=== PATIENT | female | born 1955 | race Caucasian/White ===

== ENCOUNTER → 2023-06-22 10:44 | Outpatient (REF) | payer MEDICARE, OTHER, SELFPAY | LOC: HWRAD 10:44 | PROVIDERS: ATTENDING PHYSICIAN Family Medicine | DX: Z87.891 Personal history of nicotine dependence (principal) | CPT/HCPCS: 71271 ==

== ENCOUNTER → 2023-07-12 14:05 | Outpatient (REF) | payer MEDICARE, OTHER, SELFPAY | LOC: HWWDC 14:05 | PROVIDERS: ATTENDING PHYSICIAN Family Medicine | DX: Z12.31 Encounter for screening mammogram for malignant neoplasm of breast (principal) | CPT/HCPCS: 77063; 77067 ==

== ENCOUNTER → 2023-12-15 11:18 | Outpatient (REF) | payer MEDICARE, OTHER, SELFPAY | LOC: HWRCS 11:18 | PROVIDERS: ATTENDING PHYSICIAN Internal Medicine Cardiovascular Disease; FAMILY PHYSICIAN Family Medicine | DX: R06.02 Shortness of breath (principal) | CPT/HCPCS: 93306 ==

== ENCOUNTER 2023-12-20 11:52 | Inpatient (IN) | payer MEDICARE, OTHER, SELFPAY ==
[2023-12-20] VITALS (7 sets, daily range): BP systolic 123–151; BP diastolic 71–89; PULSE 75; BMI 43.4
--- NOTE | 2023-12-20 08:12 | ED.GENMED ---
History of Present Illness
General
Chief Complaint: Breathing Problem
Source: patient and spouse
Exam Limitations: none
Time Seen by Provider: 12/20/23 07:48
Nursing documentation reviewed up to this point in time: agreed with
History of Present Illness
History of Present Illness:
68-year-old female with past medical history of COPD hypertension presenting to the emergency department today with concerns of shortness of breath made worse when laying down and trying to sleep also made worse with exertion. Has had some mild
upper respiratory symptoms over the past week but noticed worsening respiratory issues over the past 24 hours. She did take a COVID test last week started that was negative. Denies specific chest pain fevers.
Past History
Past History
ED Past Medical History: HTN and Other (GI bleed)
ED Past Surgical History: Orthopedic
Social History
Personal:
Living: with family
Review of Systems
Review of Systems
Allergies reviewed?: Yes
All Other Systems: ROS reviewed and negative except as documented in HPI and ROS
Phy Exam
Physical Exam
Physical Exam:
GENERAL: Alert , in no apparent distress
EYE: pupils equal and reactive
NECK: Supple, no significant adenopathy.
ENT: o/p clr, mmm.
CARDIAC: Regular rate and rhythm .
LUNGS: Clear breath sounds bilaterally, no acute respiratory distress, no wheezes/rales/rhonchi
ABDOMEN: Soft, without focal tenderness, no r/g, no cvat
NEUROLOGICAL: Alert and oriented, no focal neuro deficits
SKIN: Warm and dry, skin intact.
MUSCULOSKELETAL: No edema, well perfused.
PSYCH: Normal and appropriate interaction.
Scores
Heart Failure Risk
Heart Failure Risk Score: Not Applicable
Course
Orders/Labs/Results
Orders:
Orders
12/20/23 07:28
ECG [Electrocardiogram (*1)] Urgent
Reason for Study: Shortness of Breath
EKG- Treatment ONCE
12/20/23 07:58
Ipratropium/Albuterol Sulfate [Duoneb] 3 ml INH R NOW STA
12/20/23 07:59
CR Chest - 2 Views Urgent
Comment:
Reason For Exam: Patientsob
12/20/23 08:16
Basic Metabolic Panel Urgent
COVID-19 Antigen Urgent
Source: Nasal Swab
Complete Blood Count/With Diff Urgent
NT-proBNP Urgent
12/20/23 09:33
Potassium Urgent
12/20/23 09:45
Dexamethasone Sod Phosphate [Decadron] 10 mg IV NOW STA
12/20/23 10:06
Ipratropium/Albuterol Sulfate [Duoneb] 3 ml INH R NOW ONE
Abnormal Lab Results
12/20/23
08:16
RBC 4.19 L 10^6/uL
(4.20-5.40)
MCV 99.5 H fL
(81.0-99.0)
MCH 34.8 H pg
(27.0-31.0)
Absolute Monos (auto) 0.7 H 10^3/uL
(0.1-0.6)
Lymphocytes % 16.7 L %
(20.5-51.1)
Sodium 129 L mmol/L
(135-145)
Chloride 96 L mmol/L
(98-107)
Glucose 118 H mg/dl
(70-99)
12/20/23 08:16
12/20/23 09:33
Vital Signs
Initial and Last Documented VS:
Initial Vital Signs
Temp Pulse Resp BP Pulse Ox
98.4 F 73 18 151/89 96
12/20/23 07:25 12/20/23 07:25 12/20/23 07:25 12/20/23 07:25 12/20/23 07:25
Last Documented Vital Signs
Temp Pulse Resp BP Pulse Ox
98.4 F 64 11 123/72 89
12/20/23 07:25 12/20/23 10:45 12/20/23 10:45 12/20/23 10:00 12/20/23 10:58
MDM/Problems Addressed
MDM/Problems Addressed:
68-year-old female presenting to the emergency department today with concerns of worsening shortness of breath over the past day or so. Has had mild upper respiratory symptoms over the past week. Negative COVID test last week. Shortness of breath
worse when laying down and with exertion. On exam lung sounds are somewhat diminished but no obvious wheezing. Patient was given a nebulizer treatment vital signs here are normal. Patient BNP 30.7 no evidence of edema on chest x-ray but evidence
of COPD changes. After the initial DuoNeb patient with more noticeable wheezing when reassessing lungs. Symptoms most consistent with COPD at this point. Patient given dose of dexamethasone as well as second DuoNeb. Pulse ox fluctuating in the
high 80s at rest. With any exertion dropping lower. Plan to admit for further treatment and monitoring.
*Critical Care Note
Total Time (30-74mins, 75-104mins- exclusive of procedures): Not Applicable
ED Attending Note
-
Portions of this chart may have been created with voice recognition software.� Occasional wrong word or��sound alike� substitutions may have occurred due to the inherent limitations of voice recognition software.
Discharge Plan
Departure
Patient Disposition: Admit
Date of Disposition: 12/20/23
Time of Disposition: 11:17
Admit to: Telemetry
Admit to doctor: Alex
Presentation/result/management discussed w/ accepting MD/DO: Hospitalist
Patient with high blood pressure during this ER visit?: No
Condition: Good
Covid-19: Not Applicable
Discharge Problem:
COPD exacerbation
Prescriptions:
No Action
timolol maleate 1 DROP drops
1 drp BOTH EYES DAILY
L.acidoph, paracasei,B. lactis 1 EACH capsule
1 ea PO DAILY
pantoprazole 40 MG tablet,delayed release (DR/EC)
40 mg PO DAILY Qty: 30 0RF
losartan 25 MG tablet
12.5 mg PO DAILY Qty: 0 0RF
Rx Instructions:
Restart Once blood pressure is higher than 130 mm HG
Referrals:
Sonia Guzman MD [Family Provider] -
Interventions
Interventions:
*Risk Screen - Suicide Last Done: 12/20/23 07:25
*General Assessment Last Done: 12/20/23 07:25
*Neglect/Abuse Screening Last Done: 12/20/23 07:25
ED- Fall Risk Assessment Last Done: 12/20/23 08:27
ED- Cardiac Assessment Last Done: 12/20/23 08:27
ED- Pulmonary Assessment Last Done: 12/20/23 08:27
Discharge Date and Time
Print Language: YAKUT
[2023-12-20] MEDS: DUONEB 3 ML INH ×3 (08:21→21:20)
[2023-12-20 08:30] LABS: % Basophils 0.5 % (0-2); % Eosinophils 3.1 % (0-6); % Immature Granulocytes 0.2 % (0-0.5); % Lymphocytes 16.7 % (20.5-51.1); % Neutrophils 71.5 % (42.2-75.2); Absolute Eosinophils 0.3 10^3/uL (0-0.7); Absolute Lymphocytes 1.4 10^3/uL (1.2-3.4); Absolute Monocytes 0.7 10^3/uL (0.1-0.6); Hematocrit 41.7 % (37.0-47.0); Hemoglobin 14.6 g/dL (12.0-16.0); Mean Corpuscular Hgb 34.8 pg (27.0-31.0); Mean Corpuscular Volume 99.5 fL (81.0-99.0); Mean Platelet Volume 9.9 fL (7.4-10.4); Nucleated Red Blood Cells % 0 %; Platelet Count 162 10^3/uL (130-400); Red Blood Cell Count 4.19 10^6/uL (4.20-5.40); Red Cell Dist. Width 13.3 % (11.5-14.5); White Blood Cell Count 8.4 10^3/uL (4.8-10.8)
[2023-12-20 08:49] LABS: COVID-19 Antigen Negative (Negative)
[2023-12-20 08:52] LABS: Blood Urea Nitrogen 11 mg/dl (7-17); Glucose 118 mg/dl (70-99); Sodium 129 mmol/L (135-145); eGFR > 60.00
[2023-12-20 08:53] LABS: Carbon Dioxide 24 mmol/L (22-30); Chloride 96 mmol/L (98-107)
[2023-12-20 08:54] LABS: Calcium 9.4 mg/dl (8.4-10.2)
[2023-12-20 08:55] LABS: NT-proBNP 30.7 pg/ml
[2023-12-20 09:52] LABS: Potassium 4.5 mmol/L (3.5-5.1)
[2023-12-20] MEDS: DECADRON 10 MG IV (10:29)
--- NOTE | 2023-12-20 11:30 | HPS.HSE ---
Family Physician
-
Family Physician: Sonia Guzman
Chief Complaint
-
Shortness of breath, worse with exertion and lying flat, over 7 days
History of Present Illness
68-year-old female with COPD, hypertension, H/O GI bleed that presented to the emergency department today with complaints of shortness of breath. Her symptoms started roughly 7 days ago, began as mild upper respiratory symptoms which continued to
progress into respiratory distress over the last 24 hours. She states that her symptoms were worse when she was laying down trying to sleep, and also made worse with exertion. She took a COVID test near the beginning of her symptoms which she
states returned negative. She denies any chest pain or fevers, denies nausea/vomiting/diarrhea, denies urinary issues. Upon arrival to the ED she was hemodynamically stable, afebrile, on room air with SpO2 in the mid to high 80s. Labs showed
sodium 129 with chloride 96 but otherwise were unremarkable. COVID testing in the ED was negative. Chest x-ray showed mild hyperinflation related to COPD. She was given 10 mg IV dexamethasone and 1 dose of DuoNeb nebulizer while in the ED
Medical History
Past Medical History
Past Medical History: Reports COPD and HTN
Past Surgical History: Reports Orthopedic
Social History
Tobacco: Smoker
Alcohol: Occasional
Drug: None
Family History
Family History: Not pertinent
Allergies / Home Medications
Allergies reflects when Allergies were last updated in [employer].
Home Medications with original date entered in [employer]
Allergy/Medication List:
NKDA
Review of Systems
-
A 12 point ROS was completed and negative except as noted: Yes
Constitutional: Reports No Symptoms
Respiratory: Reports Trouble Breathing and Other (Wheeze(+))
Cardiac: Reports No Symptoms
Abdomen/GI: Reports No Symptoms
: Reports No Symptoms
Musculoskeletal: Reports No Symptoms
Skin: Reports No Symptoms
Neurological: Reports No Symptoms
Endocrine: Reports No Symptoms
Hematologic/Lymphatic: Reports No Symptoms
Physical Exam
Vital Signs
Vital Signs
Temp Pulse Resp BP Pulse Ox
98.4 F 64 11 123/72 89
12/20/23 07:25 12/20/23 10:45 12/20/23 10:45 12/20/23 10:00 12/20/23 10:58
Physical Exam
General: Comfortable and Conversant; No Respiratory Distress
HEENT: NormoCephalic, Anicteric, Moist mucous membranes and Atraumatic; No Thyromegaly or Nodules
Respiratory: Wheezes, Non Labored Respirations and Decreased Breath Sounds; No Rales, Rhonchi or Accessory Resp Muscle Use
Cardiac: S1/S2 and Regular Rhythm; No Murmur, Rub or Gallop
GI: Soft, Non Tender, Non Distended and Normal Bowel Sounds
Musculoskeletal: No Clubbing, No Cyanosis and No Edema
Skin: Warm and Dry; No Rash or Jaundice
Neuro: AO x 3, Nonfocal/grossly intact and Cranial Nerves Intact
Laboratory Results
-
12/20/23 08:16
12/20/23 09:33
Laboratory Results
Total Bilirubin Cancelled 12/20/23 08:16
AST Cancelled 12/20/23 08:16
ALT Cancelled 12/20/23 08:16
Alkaline Phosphatase Cancelled 12/20/23 08:16
Data Reviewed
-
Diagnostic Radiology: Report Reviewed by me
Lab Data: Labs Reviewed by me
Impression/Plan
-
#Acute hypoxemic and hypercapnic respiratory insufficiency
#COPD exacerbation -- Gold class A, Dx 1 month ago, no hospitalizations
-Was possibly triggered by viral infection 7 days ago, COVID testing negative
-Developed worsening respiratory status with exertional symptoms and symptoms while lying flat at night
-Chest x-ray showed signs of hyperaeration, no evidence of hypervolemia associated with heart failure
-Started on IV steroid and bronchodilator therapy in the ED with improvement in condition
-No complaints of worsening cough, mucus color changes, fevers or chills
-Was saturating 89% on room air in ED, adequate SpO2 on 2L now
Plan
-Continue with prednisone 40 mg daily
-Continue with DuoNebs scheduled every 6 hours
-Titrate supplemental oxygen for SpO2 goal 88 to 94%
-No indication for azithromycin as of now
-Consider LABA/ICS at discharge for maintenance therapy
#Hypertension
-No known hypertensive systemic disease
-Home regimen includes low-dose losartan 50 mg daily
-Blood pressure in the ED currently well-controlled
-Will continue to monitor
#H/O gastrointestinal bleed
-Unclear etiology of the bleed, Home regimen currently includes Protonix daily
-Will continue with oral PPI daily, no sign of bleeding at this time
#Chronic lower extremity edema
-Was prescribed Lasix 40 mg daily for lower extremity swelling
-No diagnosis of heart failure, no formal CVI diagnosis test
-Will monitor volume status while here and continue Lasix at current dosage
DVT prophylaxis: Lovenox
Diet: House
CODE STATUS: Full code
Disposition: Admit to med/surg
I will be admitting Marisol Astudillo to general medicine/surgery floor for treatment of COPD exacerbation. She is at high risk for ongoing morbidity and mortality due to worsening respiratory status with potential for acute respiratory failure and
. She will require treatment with standing dose bronchodilators and initiation of steroid regimen. I have spoken with the emergency department staff, and independently evaluated and interviewed the patient.
--- NOTE | 2023-12-20 17:51 | PTCARENOTE ---
Received pt form ED. AAOx3, VSS. Oriented to unit. [facility]. Denies any SOB or distress at this time. Plan of care is ongoing.
[2023-12-20] MEDS: TIMOPTIC 0.5% OPHTHALMIC SOLUTION 1 DROP BOTH EYES (19:53)
[2023-12-20] MEDS: MELATONIN 5 MG PO (21:53)
[2023-12-21] MEDS: DELTASONE 40 MG PO (07:37)
[2023-12-21] MEDS: VITAMIN B-12 1000 MCG PO (07:37)
[2023-12-21] MEDS: COZAAR 50 MG PO (07:38)
[2023-12-21] MEDS: TIMOPTIC 0.5% OPHTHALMIC SOLUTION 1 DROP BOTH EYES (07:38)
[2023-12-21] MEDS: VISBIOME 1 CAP PO (07:38)
[2023-12-21 07:48] VITALS: BP 130/75
[2023-12-21 09:32] LABS: % Basophils 0.2 % (0-2); % Eosinophils 0.2 % (0-6); % Immature Granulocytes 0.3 % (0-0.5); % Monocytes 4.4 % (1.7-9.3); % Neutrophils 85.9 % (42.2-75.2); Absolute Lymphocytes 1.1 10^3/uL (1.2-3.4); Absolute Monocytes 0.5 10^3/uL (0.1-0.6); Absolute Neutrophils 10.1 10^3/uL (1.4-6.5); Hematocrit 43.4 % (37.0-47.0); Hemoglobin 14.9 g/dL (12.0-16.0); Mean Corp Hgb Conc. 34.3 g/dL (33.0-37.0); Mean Corpuscular Hgb 35.1 pg (27.0-31.0); Mean Corpuscular Volume 102.4 fL (81.0-99.0); Mean Platelet Volume 9.8 fL (7.4-10.4); Nucleated Red Blood Cells % 0 %; Platelet Count 178 10^3/uL (130-400); Red Blood Cell Count 4.24 10^6/uL (4.20-5.40); Red Cell Dist. Width 13.6 % (11.5-14.5); White Blood Cell Count 11.8 10^3/uL (4.8-10.8)
--- NOTE | 2023-12-21 10:55 | W.PN.HOSP.TC ---
Addendum entered and electronically signed by Sai Johnson DO 12/21/23 18:02:
CDI clarification: Morbid obesity
-BMI 43, likely contributing to ROM/OHS for which he uses CPAP
-Do not suspect her BMI is related with COPD exacerbation
-Encourage weight loss
Original Note:
Today's Communication/Plan
-
Continue with oral prednisone and bronchodilators
Follow-up morning BMP, hold Lasix
Possible discharge later today
Assessment / Plan
Assessment / Plan
#Acute hypoxemic and hypercapnic respiratory insufficiency
#COPD exacerbation -- Gold class A, Dx 1 month ago, no hospitalizations
-Was possibly triggered by viral infection 7 days ago, COVID testing negative
-Developed worsening respiratory status with exertional symptoms and symptoms while lying flat at night
-Chest x-ray showed signs of hyperaeration, no evidence of hypervolemia associated with heart failure
-Started on IV steroid and bronchodilator therapy in the ED with improvement in condition
-No complaints of worsening cough, mucus color changes, fevers or chills
-Was saturating 89% on room air in ED, adequate SpO2 on 2L now
Plan
-Continue with prednisone 40 mg daily
-Continue with DuoNebs scheduled every 6 hours
-Titrate supplemental oxygen for SpO2 goal 88 to 94%
-No indication for azithromycin as of now
-Consider LABA/ICS at discharge for maintenance therapy
#Hypovolemic hyponatremia
-Was recently started on Lasix for leg swelling, recent illness as well
-Initial sodium was 129 in the ED, morning BMP now pending
-Lasix was held on admission, has been eating and drinking adequately
Plan
-Will follow-up morning BMP
-Continue to hold Lasix, likely will not need at DC
#Hypertension
-No known hypertensive systemic disease
-Home regimen includes low-dose losartan 50 mg daily
-Blood pressure in the ED currently well-controlled
-Will continue to monitor
#H/O gastrointestinal bleed
-Unclear etiology of the bleed, Home regimen currently includes Protonix daily
-Will continue with oral PPI daily, no sign of bleeding at this time
#Chronic lower extremity edema
-Was prescribed Lasix 40 mg daily for lower extremity swelling
-No diagnosis of heart failure, no formal CVI diagnosis test
-Lasix held, no signs of edema
#Morbid obesity -- BMI 43
#ROM/OHS
-Wears nightly CPAP
-Encouraged weight loss, diet and exercise as tolerated
DVT prophylaxis: Lovenox
Diet: House
CODE STATUS: Full code
Disposition: Admit to med/surg
Anticipated Discharge: Within 24 hours
Subjective/Interval History
-
Date of Service: December 21, 2023
Seen examined while sitting in the chair, wearing street clothes. Denies any acute complaints. States she feels very well and wants to leave the hospital.
Objective Data
-
Labs:
Laboratory Results
12/21/23 12/21/23
09:20 10:54
WBC 11.8 H
Hgb 14.9
Hct 43.4
Plt Count 178
Sodium Cancelled Pending
Potassium Cancelled Pending
Chloride Cancelled Pending
Carbon Dioxide Cancelled Pending
BUN Cancelled Pending
Creatinine Cancelled Pending
Glucose Cancelled Pending
Calcium Cancelled Pending
Vital Signs:
Vital Signs
Temp Pulse Resp BP Pulse Ox
97.9 F 68 18 130/75 95
12/21/23 07:48 12/21/23 07:48 12/21/23 07:48 12/21/23 07:48 12/21/23 07:48
I&O
12/20/23 12/21/23 12/22/23
06:59 06:59 06:59
Intake Total 720 / 720
Balance 720 / 720
Review of Systems
-
History Source: Patient
Constitutional: Reports No Symptoms
Respiratory: Reports No Symptoms
Cardiac: Reports No Symptoms
Abdomen/GI: Reports No Symptoms
Genitourinary: Reports No Symptoms
Musculoskeletal: Reports No Symptoms
Skin: Reports No Symptoms
Neuro: Reports No Symptoms
Endocrine: Reports No Symptoms
Hematologic / Lymphatic: Reports No Symptoms
Physical Exam
-
General: No Apparent Distress, Comfortable and Obese
HEENT: Normocephalic, Atraumatic and Moist Mucous Membranes
Respiratory: Clear to Auscultation and Non Labored Respirations; Negative Wheezes
Cardiac: Regular Rhythm and S1/S2; Negative Murmur, Rub, JVD or Gallop
GI: Soft, Nontender, Nondistended and Normal Bowel Sounds
Musculoskeletal: No Clubbing, No Cyanosis and No Edema
Neuro: AO x 3, Nonfocal/Grossly Intact and Central Nerve's Intact
[2023-12-21 11:52] LABS: Blood Urea Nitrogen 12 mg/dl (7-17); Calcium 9.7 mg/dl (8.4-10.2); Carbon Dioxide 29 mmol/L (22-30); Chloride 98 mmol/L (98-107); Estimated Creatinine Clearance 105 ml/min; Glucose 135 mg/dl (70-99); Potassium 4.8 mmol/L (3.5-5.1); Sodium 132 mmol/L (135-145); eGFR > 60.00
--- NOTE | 2023-12-21 14:17 | W.DCSUMMARY ---
Discharge Summary
Discharge Data
Date of Admission: 12/20/23
Date of Discharge: 12/21/23
-
Pending Results: No
Additional Pending Results:
Outpatient BMP in 5 days
Hospital Course
Presented to hospital with shortness of breath and wheezing, recently diagnosed COPD. First exacerbation of her COPD, was started on IV steroids and bronchodilators on admission. Transitioned her to oral steroids on day 2, continue with
bronchodilators. Very briefly required oxygen, was titrated up on day 1 and remained comfortable throughout the day to hospital stay. No evidence of infection.
Found to have hyponatremia in the context of Lasix use, likely reduced oral intake from preceding illness. Sodium was 120 on arrival, repeat 132 the next morning off of Lasix. Lasix was prescribed for lower extremity edema, presumed CVI. Advised
her to discontinue Lasix until she sees PCP or primary care doctor. Directed to call her PCP or weekend receptionist if she develops new leg edema or shortness of breath.
Discharged with prednisone 1 mg x 5 days, Incruse Ellipta. Encouraged to continue as needed DuoNebs 4 times daily.
Will need follow-up with PCP and pulmonology after discharge.
Discharge Plan
-
Patient Disposition: Home (Routine Discharge)
Discharge Diagnosis/Procedures: COPD exacerbation
Acute hypoxemic respiratory insufficiency
Hypovolemic hyponatremia
Condition: Fair
Diet: No restrictions
Activity: As tolerated
Driving Restrictions: As prior to admission
Blood Work: BMP in 5 days to recheck sodium level, send results to PCP
Specialty Instructions: Weigh Daily- Call MD for wt gain/loss 3 lbs overnight/5 lbs in 1 week
Referrals:
Chalino Ramon MD [Active] - (if need pulm referral)
Sonia Guzman MD [Family Provider] -
Additional Discharge Medication Instructions: Take prednisone 40 mg for 5 days after discharge
Start Incruse Ellipta once daily
Continue with DuoNebs every 6 hours as needed for shortness of breath or wheezing
Stop taking Lasix until you see your family doctor, call your family doctor or weekend receptionist if you develop swelling in legs or trouble breathing
Prescriptions:
New
losartan 50 mg Tablet
50 mg PO DAILY 30 Days Qty: 30 0RF
prednisone 20 mg Tablet
40 mg PO DAILY 5 Days Qty: 10 0RF
Incruse Ellipta 62.5 mcg/actuation blister with device
1 inh inhalation DAILY Qty: 30 0RF
Continued
timolol maleate 1 DROP drops
1 drp BOTH EYES BID
ipratropium-albuterol 0.5 mg-3 mg(2.5 mg base)/3 mL Solution For Nebulization
3 ml INHALATION R TIDPRN PRN (Reason: sob)
cyanocobalamin (vitamin B-12) 1,000 mcg Tablet
1,000 mcg PO DAILY
Pb8 Probiotic
1 cap PO DAILY
Held
furosemide [Lasix] 40 mg Tablet
40 mg PO DAILY
Hold Instructions: Resume on 01/21/24. Wait until you speak with your family doctor or weekend receptionist before resuming Lasix
Discharge Orders:
Discharge Patient (As Directed); Ordered 12/21/23
Ordered By: Sai Johnson
Discharge Date and Time
Print Language: KISWAHILI
[2023-12-21 14:31] VITALS: BP 134/71
--- NOTE | 2023-12-21 15:39 | PN.CDI ---
CDI
- -
CDI:
Physician Documentation Request
Admit Date: 12/20/23 11:52
Dear Doctor Alex,
Height: 5 ft 3 inches
Weight: 245
BMI: 43.4
RD notes 12/20 'Reason for RD visit: BMI 43.4 (obese)'
If possible, please provide an associated diagnosis related to the abnormal BMI, such as:
BMI > or = to 40
Overweight
Obesity:
Due to excess calories
Drug induced
Due to other cause
Severe or morbid obesity:
With alveolar hypoventilation (Obesity hypoventilation syndrome)
Without alveolar hypoventilation
- BMI is not significant
- Other
Use of terms such as suspected, likely, concern for, or probable (associated with a specific diagnosis that is being evaluated, monitored, or treated as if it exists) are acceptable and can be coded in the inpatient setting, when documented at the
time of discharge.
Thank you,
Maryuri Salgado RN, BSN
CDI Specialist
tiger text
Please use your independent medical judgment in providing your response.
== END 2023-12-21 15:05 | disposition home or self-care (01) | DRG 191 ==
LOC: 4 EAST ACU 11:52
PROVIDERS: Physician Assistant; ADMITTING PHYSICIAN Internal Medicine; EMERGENCY PHYSICIAN Emergency Medicine; FAMILY PHYSICIAN Family Medicine
PROC: 5A09357 Assistance with Respiratory Ventilation, Less than 24 Consecutive Hours, Continuous Positive Airway Pressure (ICD-10-PCS; 2023-12-20)
DX: J44.1 Chronic obstructive pulmonary disease with (acute) exacerbation (principal); E87.1 Hypo-osmolality and hyponatremia; Z68.41 Body mass index [BMI] 40.0-44.9, adult; E66.01 Morbid (severe) obesity due to excess calories; I10 Essential (primary) hypertension; E86.1 Hypovolemia; F17.200 Nicotine dependence, unspecified, uncomplicated; R09.02 Hypoxemia; R06.03 Acute respiratory distress; R06.89 Other abnormalities of breathing; R60.0 Localized edema; Z79.899 Other long term (current) drug therapy; Z87.19 Personal history of other diseases of the digestive system; Z11.52 Encounter for screening for COVID-19
CPT/HCPCS: 71046; 80048; 83880; 84132; 85025; 87811; 93005; 94640; 94660; 96374; 99285

== ENCOUNTER 2024-06-14 06:24 | Day surgery (SDC) | payer MEDICARE, OTHER, SELFPAY | END 2024-06-14 13:36 | disposition home or self-care (01) | LOC: GI 06:24 | PROVIDERS: ATTENDING PHYSICIAN Internal Medicine | DX: Z12.11 Encounter for screening for malignant neoplasm of colon (principal); K64.8 Other hemorrhoids; D12.7 Benign neoplasm of rectosigmoid junction; K57.30 Diverticulosis of large intestine without perforation or abscess without bleeding; Z86.0100 Personal history of colon polyps, unspecified | CPT/HCPCS: 45385; 88305 ==

== ENCOUNTER → 2024-06-26 13:55 | Outpatient (REF) | payer MEDICARE, OTHER, SELFPAY | LOC: HWRAD 13:55 | PROVIDERS: ATTENDING PHYSICIAN Orthopaedic Surgery; FAMILY PHYSICIAN Family Medicine; REFERRING PHYSICIAN Nurse Practitioner Family | DX: M25.511 Pain in right shoulder (principal); M19.011 Primary osteoarthritis, right shoulder; Z87.891 Personal history of nicotine dependence | CPT/HCPCS: 71271; 73200 ==

== ENCOUNTER → 2024-07-16 10:58 | Outpatient (REF) | payer MEDICARE, OTHER, SELFPAY | LOC: HWWDC 10:58 | PROVIDERS: ATTENDING PHYSICIAN Family Medicine | DX: Z12.31 Encounter for screening mammogram for malignant neoplasm of breast (principal) | CPT/HCPCS: 77063; 77067 ==

== ENCOUNTER 2024-07-17 06:10 | Day surgery (SDC) | payer MEDICARE, OTHER, SELFPAY ==
[2024-07-02 10:30] VITALS: BMI 42.4
[2024-07-02 11:45] LABS: ALT (SGPT) 56 U/L (0-35); AST (SGOT) 36 U/L (14-36); Albumin 4.1 g/dl (3.5-5.0); Alkaline Phosphatase 72 U/L (38-126); Blood Urea Nitrogen 10 mg/dl (7-17); Calcium 9.4 mg/dl (8.4-10.2); Carbon Dioxide 24 mmol/L (22-30); Chloride 100 mmol/L (98-107); Estimated Creatinine Clearance 103 ml/min; Glucose 97 mg/dl (70-99); Potassium 4.8 mmol/L (3.5-5.1); Sodium 131 mmol/L (135-145); Total Bilirubin 0.8 mg/dl (0.2-1.3); Total Protein 6.5 g/dl (6.3-8.2); eGFR > 60.00
[2024-07-04 13:58] LABS: Hematocrit 39.7 % (37.0-47.0); Hemoglobin 13.5 g/dL (12.0-16.0); Mean Corpuscular Hgb 33.8 pg (27.0-31.0); Mean Corpuscular Volume 99.5 fL (81.0-99.0); Mean Platelet Volume 10.4 fL (7.4-10.4); Platelet Count 197 10^3/uL (130-400); Red Blood Cell Count 3.99 10^6/uL (4.20-5.40); White Blood Cell Count 8.2 10^3/uL (4.8-10.8)
[2024-07-04 14:46] LABS: Glycohemoglobin (HgbA1c) 6.1 % (4.0-5.6)
[2024-07-06 15:06] VITALS: BMI 42.4
[2024-07-17] VITALS (7 sets, daily range): BP systolic 108–148; BP diastolic 69–83; BMI 42.4
--- NOTE | 2024-07-17 07:39 | W.DS.TRANS ---
DC Summary - Bed Bug Exterminator
-
Discharge Instructions:
Discharge Diagnosis/Procedures R Reverse TSA 07/17/24
Diet As tolerated
Activity No strenuous activity
Driving Restrictions No driving
Bathing Restrictions OK to Shower
Instructions:
Stand-Alone Forms: SDS Total Shoulder D/C Inst.
Changes to Home Medications: Yes
Discharge Medications:
DC Medications w/original date entered in [employer]
timolol maleate 0.5 % eye drops 1 drp BOTH EYES BID Eye Condition 09/01/17
Pb8 Probiotic 1 cap PO DAILY Supplement 12/20/23
cyanocobalamin (vitamin B-12) 1,000 mcg tablet 1,000 mcg PO DAILY Supplement 12/20/23
losartan 50 mg tablet 50 mg PO DAILY Blood pressure 1 month #30 tabs 12/21/23
umeclidinium 62.5 mcg/actuation blister powder for inhalation (Incruse Ellipta) 1 inh inhalation DAILY 06/29/24
cefadroxil 500 mg capsule 500 mg PO BID #14 caps 07/02/24
dexamethasone 4 mg tablet 4 mg PO BID Anti-inflammatory #7 tabs 07/02/24
mupirocin 2 % topical ointment 1 applic intranasal BID #1 tube 07/02/24
ondansetron HCl 4 mg tablet 4 mg PO Q6H PRN nausea and vomiting #30 tabs 07/02/24
oxycodone 5 mg tablet 5 - 10 mg (1 - 2 x 5 mg) PO Q6H PRN moderate-severe pain #30 tabs 07/02/24
pantoprazole 40 mg tablet,delayed release (Protonix) 40 mg PO DAILY #30 tabs 07/02/24
acetaminophen 325 mg tablet 650 mg (2 x 325 mg) PO QID #0 tabs 07/17/24
aspirin 325 mg tablet 325 mg PO DAILY blood clot prevention #1 tab 07/17/24
docusate sodium 100 mg capsule (Colace) 100 mg PO BID stool softner #1 cap 07/17/24
ibuprofen 200 mg tablet 400 mg (2 x 200 mg) PO BID Anti-inflammatory #1 tab 07/17/24
magnesium hydroxide 400 mg/5 mL oral suspension (Milk of Magnesia) 30 ml PO HS PRN Constipation #1 mL 07/17/24
sennosides 8.6 mg tablet (Senokot) 17.2 mg (2 x 8.6 mg) PO BID laxative #2 tabs 07/17/24
Home Medication Changes
cefadroxil 500 mg capsule 500 mg PO BID #14 caps 07/02/24
dexamethasone 4 mg tablet 4 mg PO BID Anti-inflammatory #7 tabs 07/02/24
mupirocin 2 % topical ointment 1 applic intranasal BID #1 tube 07/02/24
ondansetron HCl 4 mg tablet 4 mg PO Q6H PRN nausea and vomiting #30 tabs 07/02/24
oxycodone 5 mg tablet 5 - 10 mg (1 - 2 x 5 mg) PO Q6H PRN moderate-severe pain #30 tabs 07/02/24
pantoprazole 40 mg tablet,delayed release (Protonix) 40 mg PO DAILY #30 tabs 07/02/24
acetaminophen 325 mg tablet 650 mg (2 x 325 mg) PO QID #0 tabs 07/17/24
aspirin 325 mg tablet 325 mg PO DAILY blood clot prevention #1 tab 07/17/24
docusate sodium 100 mg capsule (Colace) 100 mg PO BID stool softner #1 cap 07/17/24
ibuprofen 200 mg tablet 400 mg (2 x 200 mg) PO BID Anti-inflammatory #1 tab 07/17/24
magnesium hydroxide 400 mg/5 mL oral suspension (Milk of Magnesia) 30 ml PO HS PRN Constipation #1 mL 07/17/24
sennosides 8.6 mg tablet (Senokot) 17.2 mg (2 x 8.6 mg) PO BID laxative #2 tabs 07/17/24
Pending Results: No
[2024-07-17] MEDS: CELEBREX 200 MG PO (07:44)
[2024-07-17] MEDS: TYLENOL 1000 MG PO (07:45)
[2024-07-17] MEDS: NORMOSOL-R/PLASMALYTE-A 1000 IV (07:45)
[2024-07-17] MEDS: ANCEF 5 IV (13:30)
== END 2024-07-17 13:40 | disposition home or self-care (01) ==
LOC: SDS 06:10
PROVIDERS: ATTENDING PHYSICIAN Specialist; FAMILY PHYSICIAN Family Medicine; OTHER PHYSICIAN Physician Assistant; REFERRING PHYSICIAN Internal Medicine Cardiovascular Disease
DX: M19.011 Primary osteoarthritis, right shoulder (principal)
CPT/HCPCS: 23472; C1713; C1776; 36415; 73020; 80053; 83036; 85027; 87070

== ENCOUNTER 2024-09-11 08:59 | Outpatient (RCR) | payer MEDICARE, OTHER, SELFPAY | END 2024-09-11 23:59 | disposition home or self-care (01) | LOC: RPT 08:59 | PROVIDERS: ATTENDING PHYSICIAN Physician Assistant Surgical; FAMILY PHYSICIAN Family Medicine | DX: Z47.1 Aftercare following joint replacement surgery (principal); Z73.6 Limitation of activities due to disability; M25.511 Pain in right shoulder; M62.81 Muscle weakness (generalized); Z96.611 Presence of right artificial shoulder joint | CPT/HCPCS: 97010; 97110; 97140; 97162 ==

== ENCOUNTER 2024-10-12 10:18 | Outpatient (RCR) | payer MEDICARE, OTHER, SELFPAY | END 2024-10-12 23:59 | disposition home or self-care (01) | LOC: RPT 10:18 | PROVIDERS: ATTENDING PHYSICIAN Physician Assistant Surgical; FAMILY PHYSICIAN Family Medicine | DX: Z47.1 Aftercare following joint replacement surgery (principal); Z73.6 Limitation of activities due to disability; M25.511 Pain in right shoulder; M62.81 Muscle weakness (generalized); Z96.611 Presence of right artificial shoulder joint | CPT/HCPCS: 97010; 97110; 97140 ==

== ENCOUNTER 2024-10-30 11:01 | Outpatient (RCR) | payer MEDICARE, OTHER, SELFPAY | END 2024-10-30 12:35 | disposition home or self-care (01) | LOC: RPT 11:01 | PROVIDERS: ATTENDING PHYSICIAN Physician Assistant Surgical; FAMILY PHYSICIAN Family Medicine | DX: Z47.1 Aftercare following joint replacement surgery (principal); Z73.6 Limitation of activities due to disability; M25.511 Pain in right shoulder; M62.81 Muscle weakness (generalized); Z96.611 Presence of right artificial shoulder joint | CPT/HCPCS: 97010; 97110 ==